=== PATIENT | male | born 1975 | race Caucasian/White ===

== ENCOUNTER → 2017-02-15 09:37 | Day surgery (SDC) | payer BC, OTHER ==
[~2017-02-15 09:37] MED LIST: Buffered Lidocaine 1% SYRIN* 3 ML/SYR SYRINGE INTRADERM ONE; Dexamethasone IV* 4 MG/ML 1 ML (4 MG) ONE; Famotidine IV* 10 MG/ML 2 ML (20 mg) IV ONE; Famotidine IV* 10 MG/ML 2 ML (20 mg) ONE; Glycopyrrolate IV* 0.2 MG/ML 1 ML VIAL ONE; KETAMINE HCL* 50 MG/ML 10 ML VIAL ONE; Ketorolac INJ* 30 MG/ML 1 ML VIAL ONE; Lidocaine 2% PF* 5 ML VIAL ONE; Midazolam* 1 MG/ML 5 ML VIAL (5 MG) ONE; Morphine INJ* 2 MG/ML 1 ML SYRINGE IV PRN; Neostigmine Methylsulfate* 2 MG/2 ML SYRINGE ONE; Ondansetron INJ* 2 MG/ML VIAL ONE; PROCHLORPERAZINE INJ 5 MG/ML 2 ML VIAL IV PRN; PROCHLORPERAZINE INJ 5 MG/ML 2 ML VIAL ONE; Propofol* 10 MG/ML 20 ML BTL IV PUSH ONE; ceFAZolin 2 GM PREMIX(*) 2 GM/50 ML BAG IVPB ONE; fentaNYL* 50 MCG/ML 2 ML VIAL (100 MCG VIAL) IV PRN; fentaNYL* 50 MCG/ML 2 ML VIAL (100 MCG VIAL) ONE; oxyCODONE/Acetamin 5/325 MG* TAB ONE
[2017-02-15] MEDS: oxyCODONE/Acetamin 5/325 MG* TAB PO PRN ×2 (15:12→15:18)
[2017-02-15 15:59] VITALS: BP 143/90
--- NOTE | 2017-02-16 00:59 | OP ---
DATE OF OPERATION: 02/15/17 [facility] DATE OF : 71 SURGEON: Rufino Miles MD COIL FINISHER: EMMY Lopes ANESTHESIOLOGIST: Dr. Stratton. ANESTHESIA: General anesthetic, local infiltration. PRE-OP DIAGNOSIS: Bilateral inguinal hernias. POST-OP DIAGNOSIS: Bilateral inguinal hernias. OPERATIVE PROCEDURE: Laparoscopic repair of bilateral inguinal hernias with mesh. DESCRIPTION OF PROCEDURE: The patient was supine on the operative table. After adequate general anesthetic, compression stockings, Lars Hugger warmer, and intravenous antibiotics, the abdomen was clipped and prepped with antiseptic , draped in a sterile fashion. Local infiltrative anesthesia was carried out at the umbilicus. A small intraumbilical incision was created. The fascia was entered in the lower midline and the preperitoneal plane was entered. The balloon dissector was utilized and it dissected pretty well on the right side, not so well on the left side. Additional cannulae para-median on either side were placed under vision. There was a rent in the peritoneum that resulted in pneumoperitoneum making it more difficult to see, so angiocatheter was placed in the abdomen to drain the upper abdominal gas and improve the visualization in the pelvis. Hernia sacs and lipoma of the cord were dissected free on both sides and in each case, a pre-formed hernia patch was utilized. Large patch was utilized but it was trimmed a little bit anteriorly to just decrease the width but the length was maintained. These were secured using the absorbable spiral tacker. The mesh appeared to be in good position. Hemostasis was adequate. Irrigation and suctioning was carried out. Cannulae removed. Insufflation was allowed to escape. The umbilical fascia was closed with 0 Polysorb and skin with 5-0 Polysorb in all cases followed by Steri-Strips. He tolerated the procedure well. He was awakened, extubated, and brought to recovery in good condition. No complications. No drains. No pathologic specimen. Sponge and instrument counts correct. Estimated blood loss 30 mL. CC: Dr. Jesi Sharpe* [id number]/[facility] #: [id number] MTDD
== END | disposition home or self-care (01) ==
LOC: OR 09:37
PROVIDERS: ATTEND Surgery
DX: K40.20 Bilateral inguinal hernia, without obstruction or gangrene, not specified as recurrent (principal); Z87.891 Personal history of nicotine dependence; D17.6 Benign lipomatous neoplasm of spermatic cord
CPT/HCPCS: A9270-GY; C1781; J0690; J0780; J1100; J1885; J2250; J2405; J2704; J3010

== ENCOUNTER 2019-01-23 09:33 | Day surgery (SDC) | payer BC, OTHER ==
[~2019-01-23 09:33] MED LIST changes: +Buffered Lidocaine 1% SYRIN* 1 ML/SYRINGE INTRADERM ONE; -Buffered Lidocaine 1% SYRIN* 3 ML/SYR SYRINGE INTRADERM ONE; -Dexamethasone IV* 4 MG/ML 1 ML (4 MG) ONE; -Famotidine IV* 10 MG/ML 2 ML (20 mg) IV ONE; -Famotidine IV* 10 MG/ML 2 ML (20 mg) ONE; -Glycopyrrolate IV* 0.2 MG/ML 1 ML VIAL ONE; -KETAMINE HCL* 50 MG/ML 10 ML VIAL ONE; -Ketorolac INJ* 30 MG/ML 1 ML VIAL ONE; +Lactated Ringers 1000 ML Bag* 1,000 ML IV SCH; -Lidocaine 2% PF* 5 ML VIAL ONE; -Midazolam* 1 MG/ML 5 ML VIAL (5 MG) ONE; -Morphine INJ* 2 MG/ML 1 ML SYRINGE IV PRN; -Neostigmine Methylsulfate* 2 MG/2 ML SYRINGE ONE; -Ondansetron INJ* 2 MG/ML VIAL ONE; -PROCHLORPERAZINE INJ 5 MG/ML 2 ML VIAL IV PRN; -PROCHLORPERAZINE INJ 5 MG/ML 2 ML VIAL ONE; -Propofol* 10 MG/ML 20 ML BTL IV PUSH ONE; +Sodium Citrate/Citric Acid* 15 ML UDC PO ONE; -ceFAZolin 2 GM PREMIX(*) 2 GM/50 ML BAG IVPB ONE; -fentaNYL* 50 MCG/ML 2 ML VIAL (100 MCG VIAL) IV PRN; -fentaNYL* 50 MCG/ML 2 ML VIAL (100 MCG VIAL) ONE; -oxyCODONE/Acetamin 5/325 MG* TAB ONE
[2019-01-23] MEDS ORDERED: ceFAZolin 2 GM PREMIX in ORs 2 GM/50 ML BAG IVPB ONE (09:51)
[2019-01-23] MEDS ORDERED: Sodium Citrate/Citric Acid* 15 ML UDC ONE (09:51)
[2019-01-23] MEDS ORDERED: Buffered Lidocaine 1% SYRIN* 1 ML/SYRINGE INTRADERM ONE (09:51)
[2019-01-23] MEDS ORDERED: Midazolam* 1 MG/ML 5 ML VIAL (5 MG) ONE (12:05)
[2019-01-23] MEDS ORDERED: Lidocaine 1% INJ* 10 MG/ML 30 ML SDV ONE (12:05)
[2019-01-23] MEDS ORDERED: Bupivacaine 0.5% W/EPI SDV* 30 ML VIAL ONE (12:05)
[2019-01-23] MEDS ORDERED: fentaNYL* 50 MCG/ML 2 ML VIAL (100 MCG VIAL) ONE (12:05)
[2019-01-23] MEDS ORDERED: Propofol* 10 MG/ML 20 ML BTL ONE (12:14)
[2019-01-23] MEDS ORDERED: Lidocaine 2% PF * 5 ML VIAL ONE (12:15)
[2019-01-23] MEDS ORDERED: Naloxone* 0.4 MG/ML 1 ML VIAL IV PRN (12:32)
[2019-01-23] MEDS ORDERED: Ketorolac INJ* 30 MG/ML 1 ML VIAL ONE (12:32)
[2019-01-23] MEDS ORDERED: fentaNYL* 50 MCG/ML 2 ML VIAL (100 MCG VIAL) IV PRN (12:32)
[2019-01-23] MEDS ORDERED: Ondansetron INJ* 2 MG/ML VIAL IV PRN (12:32)
[2019-01-23 14:21] VITALS: BP 120/79
[2019-01-23] MEDS ORDERED: oxyCODONE/Acetamin 5/325 MG* TAB ONE (14:32)
--- NOTE | 2019-01-23 15:10 | OP ---
CC: Dr. Rufino Miles; Dr. Sharpe OPERATIVE REPORT: DATE OF OPERATION: 01/23/19 DATE OF : 71 SURGEON: Rufino Miles MD. BILLING ANALYST: Lois Tinoco NP. ANESTHESIOLOGIST: Dr. Montgomery. ANESTHESIA: LMAC anesthesia. PRE-OP DIAGNOSIS: Recurrent left inguinal hernia. POST-OP DIAGNOSIS: Recurrent left inguinal hernia. OPERATIVE PROCEDURE: Open repair of recurrent left inguinal hernia with mesh. DESCRIPTION OF PROCEDURE: The patient was supine on the operating room table. After adequate intrave nous sedation, compression stockings, Lars Hugger warmer, and intravenous antibiotics, the left groin was clipped and prepped with antiseptic and draped in a sterile fashion. Local infiltrative anesthe bibi was administered and approximately 2-1/2-inch incision was created and carried down to the prior authorization nurse al oblique, which was opened in the direction of its fibers. There was an obvious indirect space her damien. This was dissected free from the cord structures and reduced. The previous mesh internally was palpable at the superior edge of this defect. A cone mesh plug was placed into this defect and sutu red at the mesh and at the inguinal ligament. The second piece of mesh was then placed over the ingu inal floor, sutured at the tubercle tails, was split and brought around the cord structures and tacke d down laterally. External oblique was closed over top with 2-0 Vicryl, Juanita's with 3-0 Vicryl, sk in with 4-0 Prolene, followed by sterile dressing. He tolerated the procedure well, was brought to ecovery in good condition. No complications. No drains. No pathologic specimens. Sponge and instr ument counts correct. Estimated blood loss is 10 mL. [id number] #: [id number]
== END 2019-01-23 15:00 | disposition home or self-care (01) ==
LOC: OR 09:33
PROVIDERS: ATTEND Surgery
DX: K40.91 Unilateral inguinal hernia, without obstruction or gangrene, recurrent (principal); Z87.891 Personal history of nicotine dependence
CPT/HCPCS: A9270-GY; C1781; J0690; J1885; J2250; J2704; J3010